=== PATIENT | male | born 1980 | race Caucasian/White ===

== ENCOUNTER 2020-12-09 16:02 | Inpatient (IN) | payer OTHER ==
[2020-12-09 20:41] VITALS: BMI 29.4
[2020-12-09] MEDS ORDERED: IBUPROFEN 400 MG TABLET (FP) PO PRN (21:09)
[2020-12-09] MEDS ORDERED: MAG HYDROX/AL HYDROX/SIMETH 30 ML UNIT-DOSE CUP PO PRN (21:09)
[2020-12-09] MEDS ORDERED: ONDANSETRON *ODT* 4 MG TABLET SL PRN (21:09)
[2020-12-09] MEDS ORDERED: MAGNESIUM CITRATE 300 ML BOTTLE PO PRN (21:09)
[2020-12-09] MEDS ORDERED: BISMUTH SUBSALICYLATE 524 MG/30 ML PO PRN (21:09)
[2020-12-09] MEDS ORDERED: METHOCARBAMOL 500 MG TABLET PO PRN (21:09)
[2020-12-09] MEDS ORDERED: hydrOXYzine PAMOATE 25 MG CAPSULE (FP) PO PRN (21:09)
[2020-12-09] MEDS ORDERED: ACETAMINOPHEN 325 MG TABLET (FP) PO PRN ×2 (21:09)
[2020-12-09] MEDS ORDERED: MENTHOL/PHENOL 1 EACH UD MM PRN (21:09)
[2020-12-09] MEDS ORDERED: MAGNESIUM HYDROX 2400MG/30ML ORAL SUSPENSION 30 ML CUP PO PRN (21:09)
[2020-12-09] MEDS ORDERED: diazePAM 5 MG TABLET PO ONE (21:11)
[2020-12-09] MEDS ORDERED: diazePAM 5 MG TABLET PO PRN (21:11)
[2020-12-09] MEDS ORDERED: METOPROLOL TARTRATE 25 MG TABLET (FP) PO ONE (21:13)
[2020-12-09] MEDS ORDERED: LORazepam 2 MG/ML SDV VIAL ONE (21:25)
[2020-12-09] MEDS: THIAMINE HCL 100 MG TABLET (FP) PO SCH (23:25)
[2020-12-09] MEDS: diazePAM 5 MG TABLET PO SCH (23:25)
[2020-12-09] MEDS: MELATONIN 5 MG TABLETS PO SCH (23:25)
[2020-12-10] MEDS: diazePAM 5 MG TABLET PO SCH ×4 (05:35→22:15)
[2020-12-10] MEDS: PRENATAL VITAMINS W/ FOLIC ACID TABLET (FP) PO SCH (10:12)
[2020-12-10 10:53] LABS: HEMOGLOBIN 14.1 GM/dL (11.7-16.9); MCHC 33.6 g/dl (32.0-35.9); MEAN CELL VOLUME 107.3 fl (80-96); MEAN PLT VOLUME 9.3 fl (7.5-11.1); PLATELET COUNT 63 10^3/uL (134-434); RBC 3.91 M/mm3 (4.00-5.60); RDW 12.3 % (11.9-15.9); WHITE BLOOD COUNT 2.4 K/mm3 (4.0-10.0)
[2020-12-10] MEDS ORDERED: POTASSIUM CHLORIDE ORAL LIQUID 20 MEQ/15 ML PO ONE (11:00)
[2020-12-10 11:02] LABS: CALCIUM 9.1 mg/dL (8.5-10.1)
[2020-12-10 11:03] LABS: ALBUMIN 4.1 g/dl (3.4-5.0); BLOOD UREA NITROGEN 6.2 mg/dL (7-18)
[2020-12-10 11:06] LABS: CREATININE 0.9 mg/dL (0.55-1.3)
[2020-12-10 11:07] LABS: BILIRUBIN,TOTAL 1.3 mg/dL (0.2-1)
[2020-12-10 11:08] LABS: TOT PROT 7.7 g/dl (6.4-8.2)
[2020-12-10] MEDS ORDERED: SUVOREXANT 10 MG TABLET PO PRN (22:00)
[2020-12-10] MEDS: THIAMINE HCL 100 MG TABLET (FP) PO SCH (22:15)
[2020-12-10] MEDS: POTASSIUM CHLORIDE ORAL LIQUID 20 MEQ/15 ML PO SCH (22:15)
[2020-12-10] MEDS: MELATONIN 5 MG TABLETS PO SCH (22:18)
[2020-12-11] MEDS ORDERED: diazePAM 5 MG TABLET PO SCH (06:00)
[2020-12-11 09:27] VITALS: BP 143/102; PULSE 105; TEMP 96.4
[2020-12-11] MEDS: PRENATAL VITAMINS W/ FOLIC ACID TABLET (FP) PO SCH (11:06)
[2020-12-11] MEDS: POTASSIUM CHLORIDE ORAL LIQUID 20 MEQ/15 ML PO SCH (11:06)
[2020-12-12] MEDS ORDERED: diazePAM 5 MG TABLET PO SCH (06:00)
[2020-12-13] MEDS ORDERED: diazePAM 5 MG TABLET PO ONE (06:00)
== END 2020-12-11 09:30 | disposition left against medical advice (07) | DRG 770 ==
LOC: YASAS 16:02 → Y3N 22:38
PROVIDERS: ADMIT Allergy & Immunology; ATTEND Allergy & Immunology
PROC: HZ2ZZZZ Detoxification Services for Substance Abuse Treatment (ICD-10-PCS; principal; 2020-12-09)
DX: F10.230 Alcohol dependence with withdrawal, uncomplicated (principal); I10 Essential (primary) hypertension; G47.00 Insomnia, unspecified; R00.0 Tachycardia, unspecified; Z86.69 Personal history of other diseases of the nervous system and sense organs
CPT/HCPCS: 36415; 80053; 85027; 86780; Q0162

== ENCOUNTER 2021-07-19 11:30 | Inpatient (IN) | payer OTHER ==
[2021-07-19] MEDS ORDERED: IBUPROFEN 400 MG TABLET (FP) PO PRN (11:46)
[2021-07-19] MEDS ORDERED: ACETAMINOPHEN 325 MG TABLET (FP) PO PRN ×2 (11:46)
[2021-07-19] MEDS ORDERED: MAGNESIUM CITRATE 300 ML BOTTLE PO PRN (11:46)
[2021-07-19] MEDS ORDERED: BISMUTH SUBSALICYLATE 262 MG/15 ML BTL PO PRN (11:46)
[2021-07-19] MEDS ORDERED: MENTHOL/PHENOL 1 EACH UD MM PRN (11:46)
[2021-07-19] MEDS ORDERED: MAGNESIUM HYDROX 2400MG/30ML ORAL SUSPENSION 30 ML CUP PO PRN (11:46)
[2021-07-19] MEDS ORDERED: MAG HYDROX/AL HYDROX/SIMETH 30 ML UNIT-DOSE CUP PO PRN (11:46)
[2021-07-19] MEDS ORDERED: ONDANSETRON *ODT* 4 MG TABLET SL PRN (11:46)
[2021-07-19 12:12] VITALS: BMI 29.5
[2021-07-19] MEDS ORDERED: METHOCARBAMOL 500 MG TABLET ONE (15:47)
[2021-07-19] MEDS ORDERED: hydrOXYzine PAMOATE 25 MG CAPSULE (FP) PO ONE (15:48)
[2021-07-19] MEDS: PRENATAL VITAMINS W/ FOLIC ACID TABLET (FP) PO SCH (15:48)
[2021-07-19] MEDS: hydrOXYzine PAMOATE 25 MG CAPSULE (FP) PO SCH ×3 (15:49→22:32)
[2021-07-19] MEDS: METHOCARBAMOL 500 MG TABLET PO PRN ×2 (15:49→22:32)
[2021-07-19] MEDS: LORazepam 2 MG TABLET PO SCH ×2 (17:45→22:31)
[2021-07-19 17:48] LABS: HEMATOCRIT 41.8 % (35.4-49); HEMOGLOBIN 14.2 GM/dL (11.7-16.9); MCHC 33.9 g/dl (32.0-35.9); MEAN CELL VOLUME 106.1 fl (80-96); MEAN PLT VOLUME 7.9 fl (7.5-11.1); PLATELET COUNT 133 10^3/uL (134-434); RBC 3.94 M/mm3 (4.00-5.60); RDW 15.2 % (11.9-15.9); WHITE BLOOD COUNT 3.3 K/mm3 (4.0-10.0)
[2021-07-19 18:23] LABS: ALBUMIN 4.1 g/dl (3.4-5.0); BLOOD UREA NITROGEN 11.2 mg/dL (7-18); CALCIUM 8.7 mg/dL (8.5-10.1)
[2021-07-19 18:26] LABS: CREATININE 0.8 mg/dL (0.55-1.3)
[2021-07-19 18:27] LABS: BILIRUBIN,TOTAL 1.1 mg/dL (0.2-1)
[2021-07-19] MEDS: LORazepam 1 MG TABLET PO PRN (20:03)
[2021-07-19] MEDS: MELATONIN 5 MG TABLETS PO SCH (22:32)
[2021-07-19] MEDS: THIAMINE HCL 100 MG TABLET (FP) PO SCH (22:32)
[2021-07-20] MEDS: LORazepam 1 MG TABLET PO PRN ×3 (01:41→20:36)
[2021-07-20] MEDS: hydrOXYzine PAMOATE 25 MG CAPSULE (FP) PO SCH ×5 (05:40→22:10)
[2021-07-20] MEDS: LORazepam 2 MG TABLET PO SCH ×4 (05:40→22:10)
[2021-07-20] MEDS: PRENATAL VITAMINS W/ FOLIC ACID TABLET (FP) PO SCH (10:12)
[2021-07-20] MEDS ORDERED: cloNIDine HCL 0.1 MG TABLET PO ONE (14:00)
[2021-07-20] MEDS ORDERED: METOPROLOL TARTRATE 50 MG TABLET (FP) PO ONE (17:43)
[2021-07-20] MEDS: METHOCARBAMOL 500 MG TABLET PO PRN (20:36)
[2021-07-20] MEDS: MELATONIN 5 MG TABLETS PO SCH (22:10)
[2021-07-20] MEDS: THIAMINE HCL 100 MG TABLET (FP) PO SCH (22:10)
[2021-07-21] MEDS ORDERED: LORazepam 1 MG TABLET PO SCH (05:00)
[2021-07-21] MEDS: hydrOXYzine PAMOATE 25 MG CAPSULE (FP) PO SCH (05:06)
[2021-07-21 09:19] VITALS: BP 147/95; PULSE 110; TEMP 97
[2021-07-21] MEDS ORDERED: METOPROLOL TARTRATE 50 MG TABLET (FP) PO ONE (17:28)
[2021-07-22] MEDS ORDERED: LORazepam 0.5 MG TABLET PO PRN
[2021-07-22] MEDS ORDERED: LORazepam 0.5 MG TABLET PO SCH (05:00)
[2021-07-23] MEDS ORDERED: LORazepam 0.5 MG TABLET PO ONE (05:00)
== END 2021-07-21 09:40 | disposition left against medical advice (07) | DRG 770 ==
LOC: YASAS 11:30 → Y3N 15:51
PROVIDERS: ADMIT Allergy & Immunology; ATTEND Allergy & Immunology
PROC: HZ2ZZZZ Detoxification Services for Substance Abuse Treatment (ICD-10-PCS; principal; 2021-07-19)
DX: F10.230 Alcohol dependence with withdrawal, uncomplicated (principal); F14.10 Cocaine abuse, uncomplicated; F41.8 Other specified anxiety disorders; F32.A Depression, unspecified; F10.282 Alcohol dependence with alcohol-induced sleep disorder; F10.24 Alcohol dependence with alcohol-induced mood disorder; F10.259 Alcohol dependence with alcohol-induced psychotic disorder, unspecified; Z62.810 Personal history of physical and sexual abuse in childhood; E66.9 Obesity, unspecified; Z68.29 Body mass index [BMI] 29.0-29.9, adult; Z87.891 Personal history of nicotine dependence; Z91.51 Personal history of suicidal behavior
CPT/HCPCS: 36415; 80053; 85027; 86780; C9803; J0735; Q0162; U0003; U0005